=== PATIENT | male | born 1985 | race Caucasian/White ===

== ENCOUNTER 2022-08-04 17:42 | Inpatient (IN) ==
[2022-08-04] MEDS ORDERED: Ziprasidone 10 MG, Closed System Device IM Kit 1 EACH in Water for inj. (sterile) 0.5 ML IM ONE (19:50)
[2022-08-04] MEDS ORDERED: *HR* LORazepam 2 MG/ML VIAL IM ONE (19:59)
[2022-08-05 02:57] LABS: Bilirubin,Urine Negative (Negative); Blood,Urine Negative (Negative); Clarity,Urine Clear (Clear); Color,Urine Yellow (Yellow); Glucose,Urine (UA) Normal (Normal); Ketones,Urine Negative (Negative); Leukocyte Esterase,Urine Negative (Negative); Nitrite,Urine Negative (Negative); Protein,Urine Trace mg/dL (Neg-Trace)
[2022-08-05 03:15] LABS: Amphetamine Screen,Urine Negative ng/mL (Cutoff=1000); Barbiturate Screen,Urine Negative ng/mL (Cutoff=200); Benzodiazepines Screen,Urine Negative ng/mL (Cutoff=200); Cannabinoid Screen,Urine Positive ng/mL (Cutoff = 50); Cocaine Screen,Urine Negative ng/mL (Cutoff= 300); Opiate Screen,Urine Negative ng/mL (Cutoff=300); Phencyclidine Screen,Urine Negative ng/mL (Cutoff=25)
[2022-08-05] MEDS ORDERED: OLANZapine 10 MG VIAL IM ONE (06:20)
[2022-08-05] MEDS ORDERED: Water for inj. (sterile) 10 ML ONE (06:27)
[2022-08-05 21:15] LABS: Basophils # 0.1 K/mcL (0.0-0.2); Basophils % 1.4 %; Eosinophils # 0.1 K/mcL (0.0-0.6); Eosinophils % 1.4 %; Hematocrit 41.3 % (37.5-50.1); Hemoglobin 13.3 g/dL (12.9-16.9); Immature Granulocytes % 0.3 % (0-4); Lymphocytes # 2.7 K/mcL (0.6-4.6); Lymphocytes % 45.7 %; Mean Corpuscular HGB Conc 32.2 g/dL (31.6-35.5); Mean Corpuscular Hemoglobin 34.8 pg (28.0-33.3); Mean Corpuscular Volume 108.1 fL (83.0-100.0); Mean Platelet Volume 9.2 fL (9.4-12.4); Monocytes # 0.6 K/mcL (0.0-1.3); Monocytes % 9.8 %; Neutrophils # 2.4 K/mcL (1.6-8.9); Red Blood Count 3.82 M/mcL (4.19-5.50); Red Cell Distribution Width 18.3 % (11.5-14.5); Segmented Neutrophils % 41.4 %; White Blood Count 5.9 K/mcL (4.3-11.1)
[2022-08-05 21:34] LABS: Alanine Aminotransferase 18 Units/L (7-52); Albumin 2.9 g/dL (3.5-5.7); Albumin/Globulin Ratio 0.6 (1.1-2.2); Alkaline Phosphatase 87 Units/L (34-104); Aspartate Amino Transferase 53 Units/L (13-39); BUN/Creatinine Ratio 11 (6-26); Bilirubin,Direct 2.1 mg/dL (0.0-0.2); Bilirubin,Indirect 3.4 mg/dL (0.0-1.0); Bilirubin,Total 5.5 mg/dL (0.3-1.0); Blood Urea Nitrogen 12 mg/dL (6-20); Carbon Dioxide 29 mEq/L (23-29); Chloride 103 mEq/L (98-107); Globulin 4.7 g/dL (2.4-3.5); Glucose 110 mg/dL (70-105); Osmolality,Calculated 288 (280-300); Potassium 3.7 mEq/L (3.5-5.1); Sodium 139 mEq/L (136-145); Total Protein 7.6 g/dL (6.4-8.9)
[2022-08-05 21:38] LABS: Platelet Count 53 K/mcL (140-400)
[2022-08-05 21:39] LABS: Anisocytosis 1+ (Not Present); Platelet Estimate Decreased (Normal)
[2022-08-05] MEDS ORDERED: Iopamidol - 370 500 ML MLS IVP ONE (22:13)
[2022-08-05] MEDS ORDERED: Ondansetron 4 MG/2 ML VIAL IVP PRN (22:17)
[2022-08-05] MEDS ORDERED: Naloxone 0.4 MG/ML INJ IVP PRN (22:17)
[2022-08-05 22:58] LABS: INR 1.8; Prothrombin Time 20.1 Seconds (9.4-12.1)
[2022-08-06] MEDS ORDERED: Lactulose Oral Soln 20 GM/30 ML UDC PO ONE (00:29)
[2022-08-06] MEDS ORDERED: 0.9 % Sodium Chloride 1,000 ML IVC ONE (00:42)
[2022-08-06 03:08] LABS: Hemoglobin 13.1 g/dL (12.9-16.9); Immature Granulocytes % 0.3 % (0-4)
[2022-08-06 03:09] LABS: Basophils # 0.1 K/mcL (0.0-0.2); Eosinophils # 0.1 K/mcL (0.0-0.6); Eosinophils % 1.4 %; Hematocrit 40.3 % (37.5-50.1); Lymphocytes # 2.9 K/mcL (0.6-4.6); Mean Corpuscular HGB Conc 32.5 g/dL (31.6-35.5); Mean Corpuscular Hemoglobin 34.6 pg (28.0-33.3); Mean Corpuscular Volume 106.3 fL (83.0-100.0); Mean Platelet Volume 10.2 fL (9.4-12.4); Monocytes # 0.5 K/mcL (0.0-1.3); Monocytes % 8.5 %; Neutrophils # 2.6 K/mcL (1.6-8.9); Red Blood Count 3.79 M/mcL (4.19-5.50); Red Cell Distribution Width 18.1 % (11.5-14.5); Segmented Neutrophils % 41.8 %; White Blood Count 6.2 K/mcL (4.3-11.1)
[2022-08-06 03:10] LABS: Platelet Count 73 K/mcL (140-400)
[2022-08-06 03:44] LABS: BUN/Creatinine Ratio 11 (6-26); Blood Urea Nitrogen 11 mg/dL (6-20); Calcium 9.1 mg/dL (8.6-10.3); Carbon Dioxide 30 mEq/L (23-29); Chloride 103 mEq/L (98-107); Chol/HDL Ratio 5.1 (0-4.9); Cholesterol 210 mg/dL (< 200); Glucose 72 mg/dL (70-105); HDL Cholesterol 41 mg/dL (40-59); LDL Cholesterol,Calculated 146 mg/dL (< 100); Osmolality,Calculated 290 (280-300); Phosphorous 3.1 mg/dL (2.7-4.5); Potassium 3.5 mEq/L (3.5-5.1); Sodium 141 mEq/L (136-145); Thyroid Stimulating Hormone 1.366 mcIU/mL (0.340-5.600); Triglycerides 115 mg/dL (< 150)
[2022-08-06] MEDS: 0.9 % Sodium Chloride 1,000 ML IVC SCH ×2 (03:44→09:14)
[2022-08-06 03:51] LABS: Folate 22.2 ng/mL (3.0-16.0)
[2022-08-06 03:53] LABS: Vitamin B12 > 1500 pg/mL (250-1100)
[2022-08-06] MEDS ORDERED: *HR* LORazepam 2 MG/ML VIAL IVP ONE (04:15)
[2022-08-06 04:51] LABS: Hepatitis B Surface Antigen Nonreactive (Nonreactive)
[2022-08-06 05:20] LABS: Hepatitis B Core IgM Nonreactive (Nonreactive)
[2022-08-06 08:43] LABS: Hepatitis A Antibody IgM Nonreactive (Nonreactive)
[2022-08-06 09:38] LABS: Hepatitis C Virus Antibody Reactive (Nonreactive)
[2022-08-07 10:58] LABS: Basophils % 1.1 %; Hemoglobin 12.2 g/dL (12.9-16.9)
[2022-08-07 11:00] LABS: Basophils # 0.1 K/mcL (0.0-0.2); Eosinophils # 0.1 K/mcL (0.0-0.6); Eosinophils % 1.6 %; Immature Granulocytes % 0.5 % (0-4); Immature Platelets 2.3 % (1.1-6.1); Lymphocytes # 2.1 K/mcL (0.6-4.6); Lymphocytes % 33.7 %; Mean Corpuscular Hemoglobin 34.9 pg (28.0-33.3); Mean Corpuscular Volume 105.7 fL (83.0-100.0); Mean Platelet Volume 9.8 fL (9.4-12.4); Monocytes # 0.6 K/mcL (0.0-1.3); Monocytes % 9.4 %; Neutrophils # 3.3 K/mcL (1.6-8.9); Red Cell Distribution Width 17.7 % (11.5-14.5); Segmented Neutrophils % 53.7 %; White Blood Count 6.2 K/mcL (4.3-11.1)
[2022-08-07 11:08] LABS: Platelet Count 67 K/mcL (140-400)
[2022-08-07 11:17] LABS: Alanine Aminotransferase 18 Units/L (7-52); Albumin/Globulin Ratio 0.7 (1.1-2.2); Alkaline Phosphatase 86 Units/L (34-104); Aspartate Amino Transferase 48 Units/L (13-39); BUN/Creatinine Ratio 14 (6-26); Bilirubin,Total 5.8 mg/dL (0.3-1.0); Blood Urea Nitrogen 13 mg/dL (6-20); Calcium 9.3 mg/dL (8.6-10.3); Carbon Dioxide 24 mEq/L (23-29); Chloride 107 mEq/L (98-107); Globulin 4.5 g/dL (2.4-3.5); Glucose 79 mg/dL (70-105); Osmolality,Calculated 291 (280-300); Potassium 3.6 mEq/L (3.5-5.1); Sodium 141 mEq/L (136-145); Total Protein 7.5 g/dL (6.4-8.9)
[2022-08-08] MEDS ORDERED: *HR* LORazepam 2 MG/ML VIAL IM STA ×3 (01:52→07:56)
[2022-08-08] MEDS ORDERED: OLANZapine 10 MG VIAL IM ONE (09:59)
[2022-08-08] MEDS: QUEtiapine Fumarate 25 MG TABLET PO SCH (23:03)
[2022-08-09] MEDS: QUEtiapine Fumarate 25 MG TABLET PO SCH ×2 (10:27→21:52)
[2022-08-09] MEDS: *HR* LORazepam 1 MG TABLET PO SCH ×2 (10:27→18:56)
[2022-08-09 11:31] LABS: Influenza A PCR Negative (Negative); Influenza B PCR Negative (Negative); Resp. Syncytial Virus PCR Negative (Negative); SARS-CoV-2 by PCR (In House) Negative (Negative)
[2022-08-09] MEDS ORDERED: Ondansetron ODT 4 MG TAB.RAPDIS SL PRN (17:33)
[2022-08-09] MEDS ORDERED: Naloxone 0.4 MG/ML INJ IVP PRN (17:33)
[2022-08-09] MEDS ORDERED: Mag Hydrox/Al Hydrox/Simeth 30 ML UDC PO PRN (17:33)
[2022-08-09] MEDS ORDERED: MOM Conc 10 ML UD.LIQ PO PRN (17:33)
[2022-08-09] MEDS ORDERED: Melatonin 3 MG TABLET PO PRN (17:33)
[2022-08-09 21:36] LABS: Hemoglobin 10.7 g/dL (12.9-16.9); Immature Granulocytes % 0.2 % (0-4); Mean Corpuscular Hemoglobin 34.3 pg (28.0-33.3); Red Blood Count 3.12 M/mcL (4.19-5.50); Red Cell Distribution Width 17.2 % (11.5-14.5)
[2022-08-09 21:38] LABS: Basophils # 0.1 K/mcL (0.0-0.2); Basophils % 0.9 %; Eosinophils # 0.1 K/mcL (0.0-0.6); Eosinophils % 2.5 %; Hematocrit 32.7 % (37.5-50.1); Immature Platelets 2.9 % (1.1-6.1); Lymphocytes # 2.5 K/mcL (0.6-4.6); Lymphocytes % 45.1 %; Mean Corpuscular HGB Conc 32.7 g/dL (31.6-35.5); Mean Corpuscular Volume 104.8 fL (83.0-100.0); Mean Platelet Volume 9.7 fL (9.4-12.4); Monocytes # 0.6 K/mcL (0.0-1.3); Monocytes % 9.8 %; Neutrophils # 2.3 K/mcL (1.6-8.9); Nucleated Red Blood Cells 0.4 /100 WBC (0); Segmented Neutrophils % 41.5 %; White Blood Count 5.6 K/mcL (4.3-11.1)
[2022-08-09 21:40] LABS: Platelet Count 53 K/mcL (140-400)
[2022-08-09] MEDS: Thiamine (B-1) 500 MG in 0.9 % Sodium Chloride 50 ML IVPB SCH (21:53)
[2022-08-09 21:56] LABS: Alanine Aminotransferase 22 Units/L (7-52); Albumin 2.5 g/dL (3.5-5.7); Albumin/Globulin Ratio 0.7 (1.1-2.2); Alkaline Phosphatase 92 Units/L (34-104); Aspartate Amino Transferase 60 Units/L (13-39); BUN/Creatinine Ratio 11 (6-26); Bilirubin,Direct 1.8 mg/dL (0.0-0.2); Bilirubin,Indirect 3.4 mg/dL (0.0-1.0); Bilirubin,Total 5.2 mg/dL (0.3-1.0); Blood Urea Nitrogen 10 mg/dL (6-20); Calcium 8.1 mg/dL (8.6-10.3); Carbon Dioxide 30 mEq/L (23-29); Chloride 106 mEq/L (98-107); Globulin 3.6 g/dL (2.4-3.5); Glucose 95 mg/dL (70-105); Osmolality,Calculated 291 (280-300); Potassium 2.9 mEq/L (3.5-5.1); Sodium 141 mEq/L (136-145); Total Protein 6.1 g/dL (6.4-8.9)
[2022-08-10] MEDS: QUEtiapine Fumarate 25 MG TABLET PO SCH ×2 (09:38→21:38)
[2022-08-10] MEDS: Thiamine (B-1) 500 MG in 0.9 % Sodium Chloride 50 ML IVPB SCH ×2 (09:38→21:38)
[2022-08-10 13:38] LABS: Basophils % 0.7 %; Eosinophils # 0.2 K/mcL (0.0-0.6); Eosinophils % 3.4 %; Hematocrit 31.7 % (37.5-50.1); Hemoglobin 10.5 g/dL (12.9-16.9); Immature Granulocytes % 1.1 % (0-4); Lymphocytes # 2.6 K/mcL (0.6-4.6); Lymphocytes % 46.9 %; Mean Corpuscular HGB Conc 33.1 g/dL (31.6-35.5); Mean Corpuscular Hemoglobin 34.3 pg (28.0-33.3); Mean Corpuscular Volume 103.6 fL (83.0-100.0); Mean Platelet Volume 10.8 fL (9.4-12.4); Monocytes # 0.4 K/mcL (0.0-1.3); Monocytes % 6.2 %; Red Blood Count 3.06 M/mcL (4.19-5.50); Red Cell Distribution Width 16.8 % (11.5-14.5); Segmented Neutrophils % 41.7 %; White Blood Count 5.6 K/mcL (4.3-11.1)
[2022-08-10 13:40] LABS: Neutrophils # 2.3 K/mcL (1.6-8.9); Platelet Count 56 K/mcL (140-400)
[2022-08-10 14:23] LABS: BUN/Creatinine Ratio 8 (6-26); Blood Urea Nitrogen 8 mg/dL (6-20); Calcium 8.1 mg/dL (8.6-10.3); Carbon Dioxide 25 mEq/L (23-29); Chloride 106 mEq/L (98-107); Glucose 125 mg/dL (70-105); Osmolality,Calculated 290 (280-300); Potassium 4.1 mEq/L (3.5-5.1); Sodium 140 mEq/L (136-145)
[2022-08-10] MEDS: Artificial Tears SOLN 15 ML BOTTLE BOTH EYES PRN (18:34)
[2022-08-11] MEDS: Artificial Tears SOLN 15 ML BOTTLE BOTH EYES PRN (07:35)
[2022-08-11] MEDS: QUEtiapine Fumarate 25 MG TABLET PO SCH (07:35)
[2022-08-11] MEDS: Thiamine (B-1) 500 MG in 0.9 % Sodium Chloride 50 ML IVPB SCH (07:36)
[2022-08-11 11:09] VITALS: BP 108/64; PULSE 63; TEMP 98.3; O2SAT 96
[2022-08-11] MEDS ORDERED: Thiamine (B-1) 500 MG in 0.9 % Sodium Chloride 50 ML IVPB SCH (15:00)
== END 2022-08-11 15:20 | DRG 750 ==
LOC: 3BNU 17:42 → EMEROOARM 17:42 → SUATTDRO 08-06 11:20 → 3BNU 08-06 12:24 → SUATTDRO 08-09 08:18 → UNDODISIN 08-09 16:28
PROVIDERS: ADMIT Internal Medicine; ATTEND Internal Medicine

== ENCOUNTER 2022-08-09 16:03 | Inpatient (IN) ==
[2022-08-09] MEDS ORDERED: Naloxone 0.4 MG/ML INJ IVP PRN (17:15)
[2022-08-09] MEDS ORDERED: Mag Hydrox/Al Hydrox/Simeth 30 ML UDC PO PRN (17:15)
[2022-08-09] MEDS ORDERED: Ondansetron ODT 4 MG TAB.RAPDIS SL PRN (17:15)
[2022-08-09] MEDS ORDERED: Melatonin 3 MG TABLET PO PRN (17:15)
[2022-08-09] MEDS ORDERED: MOM Conc 10 ML UD.LIQ PO PRN (17:15)
[2022-08-09 17:49] VITALS: BP 131/72; PULSE 120; TEMP 97.7; O2SAT 95
[2022-08-09] MEDS ORDERED: Thiamine (B-1) 500 MG in 0.9 % Sodium Chloride 50 ML IVPB SCH (21:00)
== END 2022-08-09 18:25 | DRG 775 ==
LOC: 1ANU 16:03
PROVIDERS: ADMIT Psychiatry & Neurology Forensic Psychiatry; ATTEND Psychiatry & Neurology Forensic Psychiatry

== ENCOUNTER 2022-08-11 15:13 | Observation (INO) ==
[2022-08-11] MEDS ORDERED: hydrOXYzine pamoate 25 MG CAPSULE PO PRN (15:26)
[2022-08-11] MEDS ORDERED: MOM Conc 10 ML UD.LIQ PO PRN ×2 (15:26→15:28)
[2022-08-11] MEDS ORDERED: *HR* LORazepam 1 MG TABLET PO PRN (15:26)
[2022-08-11] MEDS ORDERED: Mag Hydrox/Al Hydrox/Simeth 30 ML UDC PO PRN (15:26)
[2022-08-11] MEDS ORDERED: *HR* LORazepam 2 MG/ML VIAL IM PRN (15:26)
[2022-08-11] MEDS ORDERED: haloperidoL 5 MG TABLET PO PRN (15:26)
[2022-08-11] MEDS ORDERED: Haloperidol Lactate 5 MG/ML VIAL IM PRN (15:26)
[2022-08-11] MEDS ORDERED: Melatonin 3 MG TABLET PO PRN (15:28)
[2022-08-11] MEDS ORDERED: Ondansetron ODT 4 MG TAB.RAPDIS SL PRN (15:28)
[2022-08-11] MEDS ORDERED: Nicotine 2 MG GUM BC PRN (16:55)
[2022-08-11] MEDS: QUEtiapine Fumarate 25 MG TABLET PO SCH (20:42)
[2022-08-12 08:01] VITALS: BP 109/64; PULSE 81; TEMP 97.6; O2SAT 98
[2022-08-12] MEDS: QUEtiapine Fumarate 25 MG TABLET PO SCH (08:02)
[2022-08-12] MEDS ORDERED: Folic Acid 1 MG TABLET PO SCH (09:00)
[2022-08-12] MEDS ORDERED: Vitamin B Complex/Vit C/Vit E 1 EACH TABLET PO SCH (09:00)
[2022-08-12] MEDS ORDERED: Thiamine (B-1) 100 MG TABLET PO SCH (09:00)
== END 2022-08-12 17:00 | disposition home or self-care (01) ==
LOC: INTOOBSV 15:13 → 1ANU 15:13
PROVIDERS: ADMIT Psychiatry & Neurology Forensic Psychiatry; ATTEND Psychiatry & Neurology Forensic Psychiatry